=== PATIENT | female | born 1985 | race Caucasian/White ===

== ENCOUNTER 2018-05-14 13:36 | Emergency (ER) | payer OTHER ==
[2018-05-14 13:41] VITALS: BP 116/75; PULSE 85; RESP 16; TEMP 98.3; O2SAT 99
[2018-05-14] MEDS ORDERED: Sodium Chloride 0.9% 1,000 ML IV STA ×2 (13:59→14:53)
--- NOTE | 2018-05-14 14:04 | ED PDOC ---
HPI: General Adult Time Seen by Provider: 05/14/18 13:39 Chief Complaint (Nursing): Weakness/Neurological Deficit History Per: Patient Additional Complaint(s): Pt. states earlier today while taking a shower she developed suprapubic pain which began to radiate to her epigastric area. Since then pain has been intermittent. Also states when she got out of the bathroom she began to feel numbness to all her fingertips on both hands and all toes on both feet which lasted for a few seconds and resolved spontaneoulsy. Reports pain still persists. Pt. states she took 2 Ibuprofen MATERIAL COORDINATOR which has provided some relief. Also states she usually has a BM in the morning but today she has not had any BM 's. Further reports she is currently on the 3rd day of her period and that she normally gets pelvic cramping when she gets her period. Denies fever, N/V/D, previous abdominal surgeries, hx of anxiety, dysuria, frequency, vaginal discharge, weakness, SI/HI, hallucinations. Past Medical History Reviewed: Historical Data, Nursing Documentation, Vital Signs Vital Signs: Last Vital Signs Temp 98.3 F 05/14/18 13:38 Pulse 85 05/14/18 13:38 Resp 16 05/14/18 13:38 BP 116/75 05/14/18 13:38 Pulse Ox 99 05/14/18 20:04 - Medical History PMH: Depression - Surgical History Surgical History: No Surg Hx - Family History Family History: States: No Known Family Hx - Allergies Allergies/Adverse Reactions: Allergies Allergy/AdvReac Type Severity Reaction Status Date / Time No Known Allergies Allergy Verified 05/14/18 13:38 Review of Systems ROS Statement: Except As Marked, All Systems Reviewed And Found Negative Gastrointestinal: Positive for: Abdominal Pain Genitourinary Female: Positive for: Pelvic Pain Physical Exam - Physical Exam Appears: Positive for: Well, Non-toxic, No Acute Distress Skin: Positive for: Normal Color, Warm. Negative for: Rash Eye Exam: Positive for: Normal appearance. Negative for: Scleral icterus ENT: Positive for: Normal ENT Inspection Cardiovascular/Chest: Positive for: Regular Rate, Rhythm Respiratory: Positive for: Normal Breath Sounds. Negative for: Respiratory Distress Gastrointestinal/Abdominal: Positive for: Normal Exam, Bowel Sounds, Soft, Other (negative Pathak's sign). Negative for: Tenderness, Distended, Guarding Back: Positive for: Normal Inspection. Negative for: L CVA Tenderness, R CVA Tenderness Neurologic/Psych: Positive for: Alert, Oriented (x3), Gait (steady, unassisted) . Negative for: Aphasia, Facial Droop - Laboratory Results Result Diagrams: 05/14/18 15:48 05/14/18 15:48 - ECG O2 Sat by Pulse Oximetry: 99 - Progress ED Course And Treament: Labs, abd US, obstructive series, IV NS bolus x 2, pepcid 20mg IV ordered. On re-evaluation, pt. reports pain has improved but is still present. WBC is 15. CT abd/pelvis w/ IV and PO contrast ordered. Pt. agrees with care and plan. Still NPO. Disposition - Clinical Impression Clinical Impression: Anxiety, Abdominal pain - Patient ED Disposition Is Patient to be Admitted: Transfer of Care (Signed out [facility] [place] pending CT results and final re-evaluation) - Disposition Disposition Time: 20:00 Condition: STABLE Forms: [employer] (Martiniquais)
[2018-05-14 14:44] LABS: SQUAMOUS EPITHIAL 1 /hpf (0-5); URINE BILIRUBIN NEGATIVE (NEGATIVE); URINE BLOOD LARGE (NEGATIVE); URINE CLARITY CLOUDY (Clear); URINE COLOR YELLOW (YELLOW); URINE GLUCOSE (UA) NEG (Normal); URINE LEUKOCYTE ESTERASE NEG Leu/uL (Negative); URINE PROTEIN 30 mg/dL (NEGATIVE); URINE UROBILINOGEN 0.2-1.0 mg/dL (0.2-1.0)
--- NOTE | 2018-05-14 15:04 | US ---
Date of service: 05/14/2018 HISTORY: epigastric and suprapubic pain COMPARISON: None. TECHNIQUE: Sonographic evaluation of the abdomen. FINDINGS: LIVER: Measures 15.2 cm. Normal echogenicity of the liver parenchyma. No mass. No intrahepatic bile duct dilatation. GALLBLADDER: Unremarkable. No gallstones. COMMON BILE DUCT: Measures 3 mm. No stones. No dilatation. PANCREAS: Unremarkable as visualized. No mass. No ductal dilatation. RIGHT KIDNEY: Measures 10 point acm. Normal echogenicity. No calculus, mass, or hydronephrosis. LEFT KIDNEY: Measures 10.5cm. Small echogenic lesion in the lower pole, 6 x 6 x 7 mm. Possible angiomyolipoma. No other mass. No calculus or hydronephrosis. SPLEEN: Normal in size and contour. No mass. AORTA: No aneurysmal dilatation. IVC: Unremarkable. OTHER FINDINGS: None. IMPRESSION: 7 mm echogenic lesion lower pole left kidney, possible angiomyolipoma. Otherwise unremarkable examination.
--- NOTE | 2018-05-14 15:33 | RAD ---
Date of service: 05/14/2018 PROCEDURE: Radiographs of the chest and abdomen (obstructive series) HISTORY: abd pain COMPARISON: No prior. TECHNIQUE: AP radiograph of the chest, with upright and supine radiographs of the abdomen. FINDINGS: CHEST: Lungs: Clear. Cardiovascular: Normal size heart. No pulmonary vascular congestion. Pleura: No pleural fluid. No pneumothorax. Other findings: None. ABDOMEN AND PELVIS: Bowel: Unremarkable bowel gas pattern. No evidence of mechanical obstruction. Free air: None. Bones: Unremarkable. Other findings: None. IMPRESSION: Unremarkable radiographs of chest and abdomen. No evidence of mechanical bowel obstruction.
[2018-05-14 16:00] LABS: ALB/GLOB RATIO 1.3 (1.0-2.1); ALBUMIN 4.8 g/dL (3.5-5.0); ALT/SGPT 17 U/L (9-52); AST/SGOT 23 U/L (14-36); BLOOD UREA NITROGEN 8 mg/dl (7-17); CALCIUM 9.7 mg/dL (8.4-10.2); GFR NON-AFRICAN AMERICAN > 60; LIPASE 82 U/L (23-300)
[2018-05-14 16:02] LABS: BASO % 0.3 % (0.0-2.0); EOS # 0.1 K/uL (0.0-0.7); EOS % 0.4 % (0.0-4.0); HEMOGLOBIN 13.5 g/dL (12.0-16.0); LYMPH # 1.3 K/uL (1.0-4.3); LYMPH % 8.6 % (20.0-40.0); MEAN CORPUSCULAR HEMOGLOBIN 28.4 pg (27.0-31.0); MEAN CORPUSCULAR HGB CONC 32.3 g/dL (33.0-37.0); MEAN PLATELET VOLUME 8.1 fl (7.2-11.7); MONO # 0.6 K/uL (0.0-0.8); NEUT # 13.1 K/uL (1.8-7.0); NEUT % 86.7 % (50.0-75.0); PLATELET COUNT 294 K/uL (130-400); RBC 4.74 Mil/uL (3.80-5.20); RED CELL DISTRIBUTION WIDTH 12.4 % (11.5-14.5); WHITE BLOOD COUNT 15.1 K/uL (4.8-10.8)
[2018-05-14] MEDS ORDERED: Iohexol 240 (50 ml) PO ONE (17:38)
[2018-05-14 17:53] LABS: BANDS 2 % (0-2); LYMPHOCYTE 4 % (20-50); MONOCYTE 7 % (0-10); NEUTROPHIL 87 % (42-75); PLATELET ESTIMATE NORMAL (NORMAL); TOTAL CELLS COUNTED 100
[2018-05-14] MEDS ORDERED: Iohexol 240 (50 ml) ONE (18:02)
[2018-05-14] MEDS ORDERED: Sodium Chloride 0.9% 50 ML IV ONE (19:28)
[2018-05-14] MEDS ORDERED: Iohexol 300 100 ML IJ ONE (19:28)
--- NOTE | 2018-05-14 21:22 | ED PDOC ---
- Laboratory Results Result Diagrams: 05/14/18 15:48 05/14/18 15:48 - ECG O2 Sat by Pulse Oximetry: 99 - Progress ED Course And Treament: Abd/pelvis: no acute disease. patient re-examined nontender abdomen at present. Notes constipation this week. Disposition - Clinical Impression Clinical Impression: Anxiety, Abdominal pain - POA Present On Arrival: None - Disposition Disposition: Routine/Home Disposition Time: 21:20 Condition: STABLE Prescriptions: Simethicone [Gas-X] 125 mg PO Q8 PRN #10 ctb PRN Reason: Pain, Mild (1-3) Instructions: Hyperventilation, Acute Abdomen (Belly Pain)
--- NOTE | 2018-05-15 11:20 | CT ---
Date of service: 05/14/2018 PROCEDURE: CT abdomen pelvis HISTORY: Suprapubic epigastric pain, leukocytosis COMPARISON: None. TECHNIQUE: Contiguous axial images of the abdomen and pelvis performed following oral and intravenous injection of approximately 90 cc Omnipaque 300 contrast material. Additional 2D sagittal and coronal reformats generated. Radiation dose: Total exam DLP = 456.29 mGy-cm. This CT exam was performed using one or more of the following dose reduction techniques: Automated exposure control, adjustment of the mA and/or kV according to patient size, and/or use of iterative reconstruction technique. FINDINGS: LOWER THORAX: Heart size normal. Small hiatal hernia. Lung alonso clear without focal consolidation. LIVER: Mild fatty hepatic infiltration. . No gross lesion or ductal dilatation. GALLBLADDER AND BILE DUCTS: Unremarkable. PANCREAS: Unremarkable. No mass. No ductal dilatation. SPLEEN: Unremarkable. No splenomegaly. ADRENALS: Unremarkable. KIDNEYS AND URETERS: Unremarkable. No stone or hydronephrosis. BLADDER: Grossly unremarkable. REPRODUCTIVE: Unremarkable. APPENDIX: Unremarkable. BOWEL: Unremarkable. No obstruction. No gross mural thickening. PERITONEUM: Questionable tiny amount of free fluid in the pelvis. No free intraperitoneal air. Small fat containing umbilical hernia. LYMPH NODES: Unremarkable. No enlarged lymph nodes. VASCULATURE: Unremarkable. No aortic aneurysm. BONES: No fracture or destructive lesion. OTHER FINDINGS: None. IMPRESSION: Questionable small amount of free fluid in the pelvis. No evidence of the acute intra abdominal pathology. Mild fatty hepatic infiltration. Small hiatal hernia. Small fat containing umbilical hernia.
== END 2018-05-14 21:32 | disposition home or self-care (01) ==
LOC: H.ER 13:36
DX: R10.2 Pelvic and perineal pain (principal); F41.9 Anxiety disorder, unspecified; R20.2 Paresthesia of skin
CPT/HCPCS: 74022; 74177; 76700; 80053; 81003; 81025; 83690; 85025; 96361; 96374; 99283; J7030; Q9966; Q9967